=== PATIENT | male | born 1935 | race Caucasian/White ===

== ENCOUNTER 2016-11-27 13:34 | Emergency (ER) | payer MEDICARE, OTHER ==
[~2016-11-27 13:34] MED LIST: /WARF25TA OR; ACET65TA OR; BABY81CH OR; LISIPOW PO; SIMV5TAB2 OR; TRAM50TA2 OR
--- NOTE | 2016-11-27 15:14 | EDDOCDS ---
Nurse's Notes [facility] Name: Juan Collazo Age: 81 yrs Sex: Male : 1935 Arrival Date: 11/27/2016 Time: 13:34 Bed TR8 Private MD: Sharon Gonsalez N. Diagnosis: Rash and other nonspecific skin eruption-unspecified allergic reaction Presentation: 11/27 13:42 Presenting complaint: Patient states: Pt presents with c/o generalized rash on trunk x dls 2 days is improving today. Onset: The symptoms/episode began/occurred 2 day(s) ago. This patient has not experienced a previous allergic reaction. Anaphylaxis evaluation, the patient reports or I have noted the following symptoms which indicate a significant risk of anaphylaxis: no signs or symptoms of anaphylaxis were noted. Adult Sepsis Screening: The patient does not have new or worsening altered mentation. Patient's respiratory rate is less than 22. Systolic blood pressure is greater than 100. Patient has a qSOFA score of 0- Negative Sepsis Screen. Suicide/Homicide risk assessment- the patient denies having any suicidal and/or homicidal ideations and does not present with any other emotional, behavioral or mental health complaints. Status: Patient is not a client services director or dependent. Transition of care: patient was not received from another setting of care. 13:42 Acuity: VIRI Level 4 dls 13:42 Method Of Arrival: Walkin/Carried/Asstd dls Triage Assessment: 13:45 General: Appears in no apparent distress, well developed, well nourished, well groomed, dls Behavior is cooperative. Pain: Denies pain. Respiratory: No deficits noted. 15:13 Respiratory: Reports no respiratory complaints. ms18 Historical: - Allergies: no known allergies; - Home Meds: 1. aspirin 325 mg Oral tab 1 tab once daily 2. Fish Oil Oral 1 cap daily 3. lisinopril 5 mg Oral tab 0.5 tab every other day 4. metoprolol tartrate 25 mg Oral tab 0.5 tabs 2 times per day 5. simvastatin 5 mg Oral tab 1 tab nightly - PMHx: CAD; Hypercholesterolemia; Hypertension; Supraventricular Tachycardia; - PSHx: hip replacement right; - Social history: Smoking status: Patient/guardian denies using No barriers to communication noted, The patient speaks fluent [place] Islander. - Family history: Not pertinent. - : The pt / caregiver states he / she is not on anticoagulants. Home medication list is obtained from the patient. - Exposure Risk Screening:: None identified. Screenin:11 Screening information is obtained from the patient. Fall risk: No risks identified. ms18 Assistance ADL's: requires no assistance with activities of daily living. Abuse/DV Screen: The patient / caregiver reports he/she is: not in a situation that causes fear, pain or injury. Nutritional screening: No deficits noted. Advance Directives: There is no living will. home support is adequate. Assessment: 15:11 General: Appears in no apparent distress, comfortable, Behavior is appropriate for age, ms18 cooperative. Pain: Denies pain. Neurological: Level of Consciousness is awake, alert, obeys commands, Oriented to person, place, time. Respiratory: No deficits noted. Airway is patent Respiratory effort is even, unlabored, Respiratory pattern is regular, symmetrical. Respiratory: Breath sounds are clear bilaterally. Derm: Skin is pink, warm & dry. normal, Rash noted that is red, on back and chest. Vital Signs: 13:37 BP 122 / 65; Pulse 76; Resp 18 S; Temp 97.4(O); Pulse Ox 98% on R/A; Weight 72.57 kg gr2 (R); Height 5 ft. 8 in. (172.72 cm) (R); Pain 2/10; 15:11 BP 130 / 63; Pulse 78; Resp 18; Temp 98; Pulse Ox 98% ; Pain 0/10; ms18 13:37 Body Mass Index 24.33 (72.57 kg, 172.72 cm) gr2 Vitals: 13:37 Log In Time: November 27, 2016 at 13:37. gr2 ED Course: 13:35 Patient visited by Cary West. gr2 13:35 Sharon Gonsalez is Private Physician. gr2 13:35 Patient moved to Waiting gr2 13:39 Patient visited by Cary West. gr2 13:39 Patient moved to Pre RCE gr2 13:43 Triage Initiated dls 14:05 Patient moved to Triage 3 ms18 14:25 [facility] ar2 14:25 Amina Olivera MD is Attending Physician. ar2 14:25 Patient visited by Tacos Aggarwal PA-C. ar2 14:51 Gonsalez, Sharon is Referral Physician. ar2 15:08 [facility] Payment Agreement was scanned into [employer] and attached to record. gjb 15:11 Patient visited by Delfina Mckeon RN. ms18 15:11 Patient moved to TR8 ms18 15:11 The patient / caregiver is instructed regarding the plan of care and ED course. Patient ms18 has correct armband on for positive identification. Property :Personal belongings accompany Pt. 15:11 No IV's were initiated during this patient's visit. No procedures done that require ms18 assistance. Order Results: There are currently no results for this order. Outcome: 14:52 Discharge ordered by Provider. ar2 15:11 Discharge Assessment: Patient awake, alert and oriented x 3. No cognitive and/or ms18 functional deficits noted. Patient verbalized understanding of disposition instructions. patient administered narcotics - no. The following High Risk Discharge criteria are identified: None. Discharged to home ambulatory. Condition: good Condition: stable. Discharge instructions given to patient, Instructed on discharge instructions, follow up and referral plans. medication usage, Demonstrated understanding of instructions, medications, Pt was receptive of discharge instructions/ teaching. Prescriptions given X 1. No special radiology studies were completed. 15:13 Patient left the ED. ms18 Signatures: Mouna Morris RN RN dls Robertshaw, Aaron, PA-C PA-C ar2 Cary West gr2 Delfina Mckeon RN RN ms18 Clementine Doan [facility] MTDD
--- NOTE | 2016-11-27 15:14 | EDDOCDS ---
Physician Documentation [facility] Name: Juan Collazo Age: 81 yrs Sex: Male : 1935 Arrival Date: 11/27/2016 Time: 13:34 Bed TR8 Private MD: Sharon Gonsalez N. Disposition: 11/27/16 14:52 Discharged to Home/Self Care. Impression: Rash and other nonspecific skin eruption - unspecified allergic reaction. - Condition is Stable. - Discharge Instructions: Rash, Allergies, Izsm-aq-Hxli. - Prescriptions for Claritin 10 mg Oral Tablet - take 1 tablet by ORAL route once daily As needed; 30 tablet. - Medication Reconciliation, Local Pharmacy Hours form. - Follow up: Sharon Gonsalez; When: As needed; Reason: Recheck today's complaints. Follow up: Emergency Department; When: As needed; Reason: Trouble breathing, Worsening of conditions. - Problem is new. - Symptoms have improved. - Notes: may use over the counter benadryl cream or sticks for additional relief Historical: - Allergies: no known allergies; - Home Meds: 1. aspirin 325 mg Oral tab 1 tab once daily 2. Fish Oil Oral 1 cap daily 3. lisinopril 5 mg Oral tab 0.5 tab every other day 4. metoprolol tartrate 25 mg Oral tab 0.5 tabs 2 times per day 5. simvastatin 5 mg Oral tab 1 tab nightly - PMHx: CAD; Hypercholesterolemia; Hypertension; Supraventricular Tachycardia; - PSHx: hip replacement right; - Social history: Smoking status: Patient/guardian denies using No barriers to communication noted, The patient speaks fluent Mexican. - Family history: Not pertinent. - : The pt / caregiver states he / she is not on anticoagulants. Home medication list is obtained from the patient. - Exposure Risk Screening:: None identified. Vital Signs: 11/27 13:37 BP 122 / 65; Pulse 76; Resp 18 S; Temp 97.4(O); Pulse Ox 98% on R/A; Weight 72.57 kg / gr2 159.99 lbs (R); Height 5 ft. 8 in. (172.72 cm) (R); Pain 2/10; 15:11 BP 130 / 63; Pulse 78; Resp 18; Temp 98; Pulse Ox 98% ; Pain 0/10; ms18 13:37 Body Mass Index 24.33 (72.57 kg, 172.72 cm) gr2 MDM: 15:08 [facility] Payment Agreement was scanned into [employer] and attached to record. noam 15:08 Financial registration complete. noam Signatures: Mouna Morris RN RN dls Tacos Aggarwal PA-C PAGino ar2 Delfina Mckeon RN RN ms18 Clementine Doan The chart was reviewed and I authenticate all verbal orders and agree with the evaluation and treatment provided.Attachments: 15:08 [facility] Payment Agreement gjvamshi MTDD
--- NOTE | 2016-11-29 16:15 | EDDOCDS ---
Nurse's Notes [facility] Name: Juan Collazo Age: 81 yrs Sex: Male : 1935 Arrival Date: 11/27/2016 Time: 13:34 Bed TR8 Private MD: Sharon Gonsalez N. Diagnosis: Rash and other nonspecific skin eruption-unspecified allergic reaction Presentation: 11/27 13:42 Presenting complaint: Patient states: Pt presents with c/o generalized rash on trunk x dls 2 days is improving today. Onset: The symptoms/episode began/occurred 2 day(s) ago. This patient has not experienced a previous allergic reaction. Anaphylaxis evaluation, the patient reports or I have noted the following symptoms which indicate a significant risk of anaphylaxis: no signs or symptoms of anaphylaxis were noted. Adult Sepsis Screening: The patient does not have new or worsening altered mentation. Patient's respiratory rate is less than 22. Systolic blood pressure is greater than 100. Patient has a qSOFA score of 0- Negative Sepsis Screen. Suicide/Homicide risk assessment- the patient denies having any suicidal and/or homicidal ideations and does not present with any other emotional, behavioral or mental health complaints. 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 Transition of care: patient was not received from another setting of care. 13:42 Acuity: VIRI Level 4 dls 13:42 Method Of Arrival: Walkin/Carried/Asstd dls Triage Assessment: 13:45 General: Appears in no apparent distress, well developed, well nourished, well groomed, dls Behavior is cooperative. Pain: Denies pain. Respiratory: No deficits noted. 15:13 Respiratory: Reports no respiratory complaints. ms18 Historical: - Allergies: no known allergies; - Home Meds: 1. aspirin 325 mg Oral tab 1 tab once daily 2. Fish Oil Oral 1 cap daily 3. lisinopril 5 mg Oral tab 0.5 tab every other day 4. metoprolol tartrate 25 mg Oral tab 0.5 tabs 2 times per day 5. simvastatin 5 mg Oral tab 1 tab nightly - PMHx: CAD; Hypercholesterolemia; Hypertension; Supraventricular Tachycardia; - PSHx: hip replacement right; - Social history: Smoking status: Patient/guardian denies using No barriers to communication noted, The patient speaks fluent Algerian. - Family history: Not pertinent. - : The pt / caregiver states he / she is not on anticoagulants. Home medication list is obtained from the patient. - Exposure Risk Screening:: None identified. Screenin:11 Screening information is obtained from the patient. Fall risk: No risks identified. ms18 Assistance ADL's: requires no assistance with activities of daily living. Abuse/DV Screen: The patient / caregiver reports he/she is: not in a situation that causes fear, pain or injury. Nutritional screening: No deficits noted. Advance Directives: There is no living will. home support is adequate. Assessment: 15:11 General: Appears in no apparent distress, comfortable, Behavior is appropriate for age, ms18 cooperative. Pain: Denies pain. Neurological: Level of Consciousness is awake, alert, obeys commands, Oriented to person, place, time. Respiratory: No deficits noted. Airway is patent Respiratory effort is even, unlabored, Respiratory pattern is regular, symmetrical. Respiratory: Breath sounds are clear bilaterally. Derm: Skin is pink, warm & dry. normal, Rash noted that is red, on back and chest. Vital Signs: 13:37 BP 122 / 65; Pulse 76; Resp 18 S; Temp 97.4(O); Pulse Ox 98% on R/A; Weight 72.57 kg gr2 (R); Height 5 ft. 8 in. (172.72 cm) (R); Pain 2/10; 15:11 BP 130 / 63; Pulse 78; Resp 18; Temp 98; Pulse Ox 98% ; Pain 0/10; ms18 13:37 Body Mass Index 24.33 (72.57 kg, 172.72 cm) gr2 Vitals: 13:37 Log In Time: November 27, 2016 at 13:37. gr2 ED Course: 13:35 Patient visited by Cary West. gr2 13:35 Sharon Gonsalez is Private Physician. gr2 13:35 Patient moved to Waiting gr2 13:39 Patient visited by Cary West. gr2 13:39 Patient moved to Pre RCE gr2 13:43 Triage Initiated dls 14:05 Patient moved to Triage 3 ms18 14:25 [facility] ar2 14:25 Amina Olivera MD is Attending Physician. ar2 14:25 Patient visited by Tacos Aggarwal PA-C. ar2 14:51 Sunshine Sharon is Referral Physician. ar2 15:08 [facility] Payment Agreement was scanned into [employer] and attached to record. gjb 15:11 Patient visited by Delfina Mckeon RN. ms18 15:11 Patient moved to TR8 ms18 15:11 The patient / caregiver is instructed regarding the plan of care and ED course. Patient ms18 has correct armband on for positive identification. Property :Personal belongings accompany Pt. 15:11 No IV's were initiated during this patient's visit. No procedures done that require ms18 assistance. 11/28 06:12 T-Sheet-- Draft Copy was scanned into [employer] and attached to record. lja Order Results: There are currently no results for this order. Outcome: 11/27 14:52 Discharge ordered by Provider. ar2 15:11 Discharge Assessment: Patient awake, alert and oriented x 3. No cognitive and/or ms18 functional deficits noted. Patient verbalized understanding of disposition instructions. patient administered narcotics - no. The following High Risk Discharge criteria are identified: None. Discharged to home ambulatory. Condition: good Condition: stable. Discharge instructions given to patient, Instructed on discharge instructions, follow up and referral plans. medication usage, Demonstrated understanding of instructions, medications, Pt was receptive of discharge instructions/ teaching. Prescriptions given X 1. No special radiology studies were completed. 15:13 Patient left the ED. ms18 Signatures: Mouna Morris, RN RN dls Tacos Aggarwal PA-C PA-C ar2 Cary West gr2 Delfina Mckeon RN RN ms18 Are, Clementine Enriquez Chart Complete MTDD
--- NOTE | 2016-11-29 16:15 | EDDOCDS ---
Physician Documentation [facility] Name: Juan Collazo Age: 81 yrs Sex: Male : 1935 Arrival Date: 11/27/2016 Time: 13:34 Bed TR8 Private MD: Sharon Gonsalez N. Disposition: 11/27/16 14:52 Discharged to Home/Self Care. Impression: Rash and other nonspecific skin eruption - unspecified allergic reaction. - Condition is Stable. - Discharge Instructions: Rash, Allergies, [id number]-Kzoj. - Prescriptions for Claritin 10 mg Oral Tablet - take 1 tablet by ORAL route once daily As needed; 30 tablet. - Medication Reconciliation, Local Pharmacy Hours form. - Follow up: Sharon Gonsalez; When: As needed; Reason: Recheck today's complaints. Follow up: Emergency Department; When: As needed; Reason: Trouble breathing, Worsening of conditions. - Problem is new. - Symptoms have improved. - Notes: may use over the counter benadryl cream or sticks for additional relief Historical: - Allergies: no known allergies; - Home Meds: 1. aspirin 325 mg Oral tab 1 tab once daily 2. Fish Oil Oral 1 cap daily 3. lisinopril 5 mg Oral tab 0.5 tab every other day 4. metoprolol tartrate 25 mg Oral tab 0.5 tabs 2 times per day 5. simvastatin 5 mg Oral tab 1 tab nightly - PMHx: CAD; Hypercholesterolemia; Hypertension; Supraventricular Tachycardia; - PSHx: hip replacement right; - Social history: Smoking status: Patient/guardian denies using No barriers to communication noted, The patient speaks fluent [place] Islander. - Family history: Not pertinent. - : The pt / caregiver states he / she is not on anticoagulants. Home medication list is obtained from the patient. - Exposure Risk Screening:: None identified. Vital Signs: 11/27 13:37 BP 122 / 65; Pulse 76; Resp 18 S; Temp 97.4(O); Pulse Ox 98% on R/A; Weight 72.57 kg / gr2 159.99 lbs (R); Height 5 ft. 8 in. (172.72 cm) (R); Pain 2/10; 15:11 BP 130 / 63; Pulse 78; Resp 18; Temp 98; Pulse Ox 98% ; Pain 0/10; ms18 13:37 Body Mass Index 24.33 (72.57 kg, 172.72 cm) gr2 MDM: 15: [facility] Payment Agreement was scanned into [employer] and attached to record. gjb : Financial registration complete. gjb 11/28 06:12 T-Sheet-- Draft Copy was scanned into [employer] and attached to record. sury Signatures: Mouna Morris RN RN dls Tacso Aggarwal PA-C PAGino arDelfina Villarreal RN RN ms18 Arel, Clementine Enriquez The chart was reviewed and I authenticate all verbal orders and agree with the evaluation and treatment provided.Attachments: 11/27 15:08 [facility] Payment Agreement gjb 11/28 06:12 T-Sheet-- Draft Copy ljmontse Chart Complete MTDD
--- NOTE | 2016-11-29 16:15 | EDDOCDS ---
Physician Documentation [facility] Name: Juan Collazo Age: 81 yrs Sex: Male : 1935 Arrival Date: 11/27/2016 Time: 13:34 Bed TR8 Private MD: Sharon Gonsalez N. Disposition: 11/27/16 14:52 Discharged to Home/Self Care. Impression: Rash and other nonspecific skin eruption - unspecified allergic reaction. - Condition is Stable. - Discharge Instructions: Rash, Allergies, Ijjv-ye-Irbr. - Prescriptions for Claritin 10 mg Oral Tablet - take 1 tablet by ORAL route once daily As needed; 30 tablet. - Medication Reconciliation, Local Pharmacy Hours form. - Follow up: Sharon Gonsalez; When: As needed; Reason: Recheck today's complaints. Follow up: Emergency Department; When: As needed; Reason: Trouble breathing, Worsening of conditions. - Problem is new. - Symptoms have improved. - Notes: may use over the counter benadryl cream or sticks for additional relief Historical: - Allergies: no known allergies; - Home Meds: 1. aspirin 325 mg Oral tab 1 tab once daily 2. Fish Oil Oral 1 cap daily 3. lisinopril 5 mg Oral tab 0.5 tab every other day 4. metoprolol tartrate 25 mg Oral tab 0.5 tabs 2 times per day 5. simvastatin 5 mg Oral tab 1 tab nightly - PMHx: CAD; Hypercholesterolemia; Hypertension; Supraventricular Tachycardia; - PSHx: hip replacement right; - Social history: Smoking status: Patient/guardian denies using No barriers to communication noted, The patient speaks fluent Puerto Rican. - Family history: Not pertinent. - : The pt / caregiver states he / she is not on anticoagulants. Home medication list is obtained from the patient. - Exposure Risk Screening:: None identified. Vital Signs: 11/27 13:37 BP 122 / 65; Pulse 76; Resp 18 S; Temp 97.4(O); Pulse Ox 98% on R/A; Weight 72.57 kg / gr2 159.99 lbs (R); Height 5 ft. 8 in. (172.72 cm) (R); Pain 2/10; 15:11 BP 130 / 63; Pulse 78; Resp 18; Temp 98; Pulse Ox 98% ; Pain 0/10; ms18 13:37 Body Mass Index 24.33 (72.57 kg, 172.72 cm) gr2 MDM: 15: [facility] Payment Agreement was scanned into [employer] and attached to record. gjb : Financial registration complete. gjb 11/28 06:12 T-Sheet-- Draft Copy was scanned into [employer] and attached to record. sury Signatures: Mouna Morris RN RN dls Tacos Aggarwal PA-C PAGino arDelfina Villarreal RN RN ms18 Arel, Clementine Enriquez The chart was reviewed and I authenticate all verbal orders and agree with the evaluation and treatment provided.Attachments: 11/27 15:08 [facility] Payment Agreement gjb 11/28 06:12 T-Sheet-- Draft Copy ljmontse Chart Complete MTDD
== END 2016-11-27 15:13 | disposition home or self-care (01) ==
LOC: M ED 13:34
DX: T78.40XA Allergy, unspecified, initial encounter (principal); X58.XXXA Exposure to other specified factors, initial encounter; Y92.89 Other specified places as the place of occurrence of the external cause; Y93.89 Activity, other specified; Y99.8 Other external cause status; L29.9 Pruritus, unspecified; R21 Rash and other nonspecific skin eruption; I25.10 Atherosclerotic heart disease of native coronary artery without angina pectoris; I10 Essential (primary) hypertension; I47.1 Supraventricular tachycardia; E78.00 Pure hypercholesterolemia, unspecified; Z96.641 Presence of right artificial hip joint; Z79.82 Long term (current) use of aspirin; Z79.899 Other long term (current) drug therapy

== ENCOUNTER → 2016-12-18 | Outpatient (REF) | payer MEDICARE, OTHER ==
[2016-12-18 13:58] LABS: BASO % 0.3 % (0.0-1.0); EOS # 0.2 K/mm3 (0.0-0.50); EOS % 4.6 % (0.0-3.0); LARGE UNSTAINED CELL # 0.1 K/mm3 (0.0-0.4); LARGE UNSTAINED CELL % 2.8 % (0.0-4.0); LYMPH # 2.4 K/mm3 (1.5-4.5); LYMPH % 46.5 % (24.0-44.0); MEAN CORPUSCULAR HEMOGLOBIN 30.4 pg (27.0-33.0); MEAN CORPUSCULAR HGB CONC 33.9 g/dl (32.0-36.5); MEAN CORPUSCULAR VOLUME 89.8 fl (80.0-96.0); MONO # 0.3 K/mm3 (0.0-0.8); MONO % 5.4 % (0.0-5.0); NEUTROPHILS # 2.1 K/mm3 (1.8-7.7); NEUTROPHILS % 40.4 % (36.0-66.0); PLATELET COUNT, AUTOMATED 178 k/mm3 (150-450); RED CELL DISTRIBUTION WIDTH 12.1 % (11.5-14.5); WHITE BLOOD COUNT 5.2 K/mm3 (4.0-10.0)
[2016-12-18 14:44] LABS: ALBUMIN 3.8 GM/DL (3.2-5.2); ALBUMIN/GLOBULIN RATIO 1.12 (1.00-1.93); BILIRUBIN,TOTAL 0.5 MG/DL (0.2-1.0); CALCIUM LEVEL 8.7 MG/DL (8.8-10.2); CREATININE FOR GFR 1.43 MG/DL (0.70-1.30); GLOMERULAR FILTRATION RATE 50.5 (>35); POTASSIUM SERUM 4.5 MEQ/L (3.5-5.1); TOTAL PROTEIN 7.2 GM/DL (6.4-8.2)
== END ==
LOC: M LABDRAW1 12:59
PROVIDERS: ATTEND Physician Assistant Medical
DX: N18.3 Chronic kidney disease, stage 3 (moderate) (principal); D63.8 Anemia in other chronic diseases classified elsewhere; R73.01 Impaired fasting glucose; E78.4 Other hyperlipidemia

== ENCOUNTER 2017-06-07 18:56 | Emergency (ER) | payer MEDICARE, OTHER ==
[~2017-06-07] VITALS: Ht 172.7 cm; Wt 72.8 kg
[2017-06-07] MEDS ORDERED: METO1TAB87 PO (19:11)
[2017-06-07] MEDS ORDERED: ASPI325T PO (19:11)
[2017-06-07] MEDS ORDERED: FISH1000 PO (19:11)
--- NOTE | 2017-06-07 19:45 | ECGEPIP ---
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
--- NOTE | 2017-06-07 20:40 | REPUSA ---
Clinical history: Cough. Comparison: None. Findings: Frontal and lateral views of the chest were obtained. The mediastinum and cardiac silhouett e are within normal limits. The lungs are clear. No pleural effusion or pneumothorax is seen. The oss eous structures and soft tissues are unremarkable. Impression: No acute disease.
[2017-06-07 20:46] LABS: BASO % 0.4 % (0.0-1.0); EOS # 0.2 K/mm3 (0.0-0.50); EOS % 2.6 % (0.0-3.0); LARGE UNSTAINED CELL # 0.1 K/mm3 (0.0-0.4); LARGE UNSTAINED CELL % 2.2 % (0.0-4.0); LYMPH # 2.8 K/mm3 (1.5-4.5); LYMPH % 43.5 % (24.0-44.0); MEAN CORPUSCULAR HEMOGLOBIN 32.8 pg (27.0-33.0); MEAN CORPUSCULAR HGB CONC 35.9 g/dl (32.0-36.5); MEAN CORPUSCULAR VOLUME 91.3 fl (80.0-96.0); MONO # 0.3 K/mm3 (0.0-0.8); MONO % 4.7 % (0.0-5.0); NEUTROPHILS # 2.9 K/mm3 (1.8-7.7); NEUTROPHILS % 46.7 % (36.0-66.0); PLATELET COUNT, AUTOMATED 153 k/mm3 (150-450); RED CELL DISTRIBUTION WIDTH 12.1 % (11.5-14.5); WHITE BLOOD COUNT 6.2 K/mm3 (4.0-10.0)
[2017-06-07 21:03] LABS: MAGNESIUM LEVEL 2.1 MG/DL (1.8-2.4); PHOSPHORUS LEVEL 3.6 MG/DL (2.5-4.9)
[2017-06-07 21:07] LABS: ANION GAP 5 MEQ/L (8-16); BLOOD UREA NITROGEN 27 MG/DL (7-18); CARBON DIOXIDE LEVEL 27 MEQ/L (21-32); CHLORIDE LEVEL 105 MEQ/L (98-107); CREATININE FOR GFR 1.41 MG/DL (0.70-1.30); FREE T4 0.98 NG/DL (0.76-1.46); GLOMERULAR FILTRATION RATE 51.2 (>35); GLUCOSE, FASTING 100 MG/DL (83-110); POTASSIUM SERUM 4.7 MEQ/L (3.5-5.1); SODIUM LEVEL 137 MEQ/L (136-145)
[2017-06-07 22:16] VITALS: BP 119/67
== END 2017-06-07 22:29 | disposition home or self-care (01) ==
LOC: M ED 18:56
DX: R00.2 Palpitations (principal); I12.9 Hypertensive chronic kidney disease with stage 1 through stage 4 chronic kidney disease, or unspecified chronic kidney disease; D64.9 Anemia, unspecified; N18.9 Chronic kidney disease, unspecified; E78.4 Other hyperlipidemia

== ENCOUNTER → 2017-08-28 | Outpatient (REF) | payer MEDICARE, OTHER ==
[~2017-08-28] MED LIST changes: +ASPI325T PO; +FISH1000 PO; +METO1TAB87 PO
[2017-08-28 11:34] LABS: BASO % 0.5 % (0.0-1.0); EOS # 0.2 10^3/uL (0.0-0.50); EOS % 3.6 % (0.0-3.0); IMMATURE GRANULOCYTE % 0.3 % (0-0); LYMPH # 2.9 10^3/uL (1.5-4.5); MEAN CORPUSCULAR HEMOGLOBIN 31.8 pg (27.0-33.0); MEAN CORPUSCULAR HGB CONC 34.2 g/dl (32.0-36.5); MEAN CORPUSCULAR VOLUME 93.2 fl (80.0-96.0); MONO # 0.4 10^3/uL (0.0-0.8); MONO % 6.9 % (0.0-5.0); NEUTROPHILS # 2.7 10^3/uL (1.8-7.7); NEUTROPHILS % 42.7 % (36.0-66.0); PLATELET COUNT, AUTOMATED 179 10^3/uL (150-450); RED CELL DISTRIBUTION WIDTH 12.3 % (11.5-14.5); WHITE BLOOD COUNT 6.4 10^3/uL (4.0-10.0)
[2017-08-28 11:36] LABS: ADD MANUAL DIFFER NO; DIFF SLIDE NUMBER 177
[2017-08-28 12:22] LABS: ALBUMIN 3.7 GM/DL (3.2-5.2); ALBUMIN/GLOBULIN RATIO 1.03 (1.00-1.93); BILIRUBIN,TOTAL 0.8 MG/DL (0.2-1.0); CALCIUM LEVEL 9.1 MG/DL (8.8-10.2); CREATININE FOR GFR 1.37 MG/DL (0.70-1.30); POTASSIUM SERUM 4.3 MEQ/L (3.5-5.1); TOTAL PROTEIN 7.3 GM/DL (6.4-8.2)
== END ==
LOC: M LABDRAW1 10:06
PROVIDERS: ATTEND Physician Assistant Medical
DX: E78.4 Other hyperlipidemia (principal); R73.01 Impaired fasting glucose; D63.8 Anemia in other chronic diseases classified elsewhere

== ENCOUNTER → 2018-08-27 | Outpatient (REF) | payer MEDICARE, OTHER ==
[2018-08-27 12:48] LABS: BASO % 0.5 % (0.0-1.0); EOS # 0.3 10^3/uL (0.0-0.50); EOS % 5.5 % (0.0-3.0); HEMATOCRIT 36.1 % (42.0-52.0); HEMOGLOBIN 12.2 g/dl (13.5-17.5); IMMATURE GRANULOCYTE % 0.3 % (0-3.0); LYMPH # 2.1 10^3/uL (1.5-4.5); LYMPH % 35.1 % (24.0-44.0); MEAN CORPUSCULAR HEMOGLOBIN 31.3 pg (27.0-33.0); MEAN CORPUSCULAR HGB CONC 33.8 g/dl (32.0-36.5); MEAN CORPUSCULAR VOLUME 92.6 fl (80.0-96.0); MONO # 0.5 10^3/uL (0.0-0.8); MONO % 7.8 % (0.0-5.0); NEUTROPHILS % 50.8 % (36.0-66.0); PLATELET COUNT, AUTOMATED 154 10^3/uL (150-450)
[2018-08-27 13:44] LABS: ESTIMATED AVERAGE GLUCOSE 123 MG/DL (60-110); HEMOGLOBIN A1c 5.9 %
[2018-08-27 13:45] LABS: ALBUMIN 3.8 GM/DL (3.2-5.2); ALBUMIN/GLOBULIN RATIO 1.06 (1.00-1.93); ALKALINE PHOSPHATASE 72 U/L (45-117); ALT/SGPT 27 U/L (12-78); ANION GAP 9 MEQ/L (8-16); AST/SGOT 24 U/L (7-37); BILIRUBIN,TOTAL 0.8 MG/DL (0.2-1.0); BLOOD UREA NITROGEN 17 MG/DL (7-18); CALCIUM LEVEL 8.8 MG/DL (8.8-10.2); CARBON DIOXIDE LEVEL 25 MEQ/L (21-32); CHLORIDE LEVEL 105 MEQ/L (98-107); CHOLESTEROL LEVEL 176 MG/DL (<200); CHOLESTEROL RISK RATIO 4.631 (<5); FERRITIN 87 NG/ML (26-388); FOLATE > 24.0 NG/ML; GLOMERULAR FILTRATION RATE 51.5 (>35); GLUCOSE, FASTING 93 MG/DL (70-100); HDL CHOLESTEROL 38 MG/DL (>40); IRON (FE) 79 UG/DL (65-175); LDL CHOLESTEROL 109 MG/DL (<100); NON-HDL-C 138 MG/DL; PERCENT SATURATION 27.4 % (19.7-50.0); POTASSIUM SERUM 4.7 MEQ/L (3.5-5.1); SODIUM LEVEL 139 MEQ/L (136-145); TOTAL IRON BINDING CAPACITY 288 UG/DL (250-450); TOTAL PROTEIN 7.4 GM/DL (6.4-8.2); TRIGLYCERIDES LEVEL 147 MG/DL (<150)
[2018-08-27 13:58] LABS: MALB URINE SIEMENS 8.1 MG/L
[2018-08-27 14:01] LABS: MAU/CREAT RATIO 7.4 MCG/MG (0.0-30.0)
== END ==
LOC: M LABDRAW1 11:42
DX: N18.3 Chronic kidney disease, stage 3 (moderate) (principal); R73.01 Impaired fasting glucose; D63.8 Anemia in other chronic diseases classified elsewhere; E78.00 Pure hypercholesterolemia, unspecified
CPT/HCPCS: 82746

== ENCOUNTER → 2019-03-04 | Outpatient (REF) | payer MEDICARE, OTHER ==
[~2019-03-04] MED LIST changes: -/WARF25TA OR; +ASPI-1 PO; -ASPI325T PO; +COUM1TAB18 OR
[2019-03-04 19:48] LABS: HEMOGLOBIN 12.7 g/dl (13.5-17.5); MEAN CORPUSCULAR HEMOGLOBIN 30.7 pg (27.0-33.0); MEAN CORPUSCULAR HGB CONC 32.6 g/dl (32.0-36.5); MEAN CORPUSCULAR VOLUME 94.2 fl (80.0-96.0); PLATELET COUNT, AUTOMATED 164 10^3/uL (150-450); RED BLOOD COUNT 4.14 10^6/uL (4.30-6.10); WHITE BLOOD COUNT 9.2 10^3/uL (4.0-10.0)
[2019-03-04 19:55] LABS: ALBUMIN 4.1 GM/DL (3.2-5.2); BILIRUBIN,TOTAL 0.5 MG/DL (0.2-1.0); CALCIUM LEVEL 9.4 MG/DL (8.8-10.2); CREATININE FOR GFR 1.41 MG/DL (0.70-1.30); GLOMERULAR FILTRATION RATE 51.1 (>35); POTASSIUM SERUM 4.9 MEQ/L (3.5-5.1); TOTAL PROTEIN 7.4 GM/DL (6.4-8.2)
[2019-03-04 20:38] LABS: BASOPHILS 1 % (0-4); EOSINOPHILS 3 % (0-5); LYMPHOCYTES 55 % (16-52); MONOCYTES 5 % (0-8); NEUTROPHILS 36 % (35-75); PLATELET ESTIMATE NORMAL (NORMAL)
== END ==
LOC: M SFHCADAM 15:46
PROVIDERS: ATTEND Physician Assistant Medical
DX: R73.01 Impaired fasting glucose (principal); I12.9 Hypertensive chronic kidney disease with stage 1 through stage 4 chronic kidney disease, or unspecified chronic kidney disease; N18.3 Chronic kidney disease, stage 3 (moderate)
CPT/HCPCS: 80053; 85025; G0463

== ENCOUNTER → 2019-08-19 | Outpatient (REF) | payer MEDICARE, OTHER ==
[2019-08-19 19:19] LABS: HEMOGLOBIN A1c 5.6 %
[2019-08-19 19:27] LABS: BILIRUBIN,TOTAL 0.7 MG/DL (0.2-1.0); CALCIUM LEVEL 9.2 MG/DL (8.8-10.2); CREATININE FOR GFR 1.44 MG/DL (0.70-1.30); GLOMERULAR FILTRATION RATE 49.8 (>35); PERCENT SATURATION 40.9 % (19.7-50.0); POTASSIUM SERUM 4.5 MEQ/L (3.5-5.1); THYROID STIMULATING HORMONE 6.18 uIU/ML (0.358-3.740)
[2019-08-19 19:29] LABS: BASO % 0.5 % (0.0-1.0); EOS # 0.2 10^3/uL (0.0-0.5); EOS % 2.8 % (0.0-3.0); HEMATOCRIT 37.1 % (42.0-52.0); HEMOGLOBIN 12.2 g/dl (13.5-17.5); LYMPH # 2.7 10^3/uL (1.5-5.0); LYMPH % 44.3 % (24.0-44.0); MEAN CORPUSCULAR HEMOGLOBIN 30.9 pg (27.0-33.0); MEAN CORPUSCULAR HGB CONC 32.9 g/dl (32.0-36.5); MEAN CORPUSCULAR VOLUME 93.9 fl (80.0-96.0); MONO # 0.4 10^3/uL (0.0-0.8); MONO % 6.2 % (0.0-5.0); NEUTROPHILS # 2.8 10^3/uL (1.5-8.5); NEUTROPHILS % 45.9 % (36.0-66.0); PLATELET COUNT, AUTOMATED 177 10^3/uL (150-450); RED BLOOD COUNT 3.95 10^6/uL (4.30-6.10); TOTAL 25(OH) VITAMIN D 53.4 NG/ML (30.0-100.0); WHITE BLOOD COUNT 6.1 10^3/uL (4.0-10.0)
[2019-08-19 19:35] LABS: MALB URINE SIEMENS 19.7 MG/L; MAU/CREAT RATIO 11.3 MCG/MG (0.0-30.0)
== END ==
LOC: M LABDRAW1 18:38
PROVIDERS: ATTEND Physician Assistant Medical
DX: E78.49 Other hyperlipidemia (principal); I10 Essential (primary) hypertension; N18.3 Chronic kidney disease, stage 3 (moderate); R73.01 Impaired fasting glucose; Z79.899 Other long term (current) drug therapy; Z79.82 Long term (current) use of aspirin

== ENCOUNTER 2019-09-17 17:06 | Emergency (ER) | payer MEDICARE, OTHER ==
[~2019-09-17] VITALS: Ht 172.7 cm; Wt 72.6 kg
--- NOTE | 2019-09-17 17:32 | ECGEPIP ---
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
[2019-09-17 17:57] LABS: BASO % 0.5 % (0.0-1.0); EOS # 0.1 10^3/uL (0.0-0.5); EOS % 1.4 % (0.0-3.0); HEMATOCRIT 37.4 % (42.0-52.0); LYMPH # 3.2 10^3/uL (1.5-5.0); MEAN CORPUSCULAR HEMOGLOBIN 32.3 pg (27.0-33.0); MEAN CORPUSCULAR HGB CONC 34.8 g/dl (32.0-36.5); MEAN CORPUSCULAR VOLUME 92.8 fl (80.0-96.0); MONO # 0.5 10^3/uL (0.0-0.8); MONO % 6.1 % (0.0-5.0); NEUTROPHILS # 4.1 10^3/uL (1.5-8.5); NEUTROPHILS % 51.7 % (36.0-66.0); PLATELET COUNT, AUTOMATED 173 10^3/uL (150-450); RED BLOOD COUNT 4.03 10^6/uL (4.30-6.10)
[2019-09-17 18:25] LABS: BLOOD UREA NITROGEN 30 MG/DL (7-18); CALCIUM LEVEL 9.1 MG/DL (8.8-10.2); CARBON DIOXIDE LEVEL 26 MEQ/L (21-32); CHLORIDE LEVEL 108 MEQ/L (98-107); CK-MB VALUE MASS 10.1 NG/ML (<3.6); CPK CREATINE PHOSPHOKINASE 274 U/L (39-308); CREATININE FOR GFR 1.62 MG/DL (0.70-1.30); GLOMERULAR FILTRATION RATE 43.4 (>35); GLUCOSE, FASTING 118 MG/DL (70-100); MB/CK RELATIVE INDEX 3.69 (< OR =4); POTASSIUM SERUM 4.6 MEQ/L (3.5-5.1); SODIUM LEVEL 140 MEQ/L (136-145); TROPONIN I < 0.02 NG/ML (< 0.10)
--- NOTE | 2019-09-17 18:33 | REP ---
Two-view chest: 09/17/2019. Indication: Tachycardia. Comparison: 06/07/2017. Findings: The lungs are clear. There is no pleural effusion or pneumothorax. Cardiomediastinal silhouette is unremarkable. Impression: Clear lungs. Electronically Signed by Peng Sevilla DO 09/17/2019 06:25 P
[2019-09-17] MEDS ORDERED: METOPROLOL 5 MG/5 ML VIAL IV SCH (19:00)
[2019-09-17] MEDS ORDERED: NS 1,000 ML IV ONE (19:00)
[2019-09-17 21:55] VITALS: BP 152/70
== END 2019-09-17 22:00 | disposition home or self-care (01) ==
LOC: M ED 17:06
DX: R00.0 Tachycardia, unspecified (principal); E86.0 Dehydration; I10 Essential (primary) hypertension; E78.5 Hyperlipidemia, unspecified; Z79.82 Long term (current) use of aspirin; Z79.899 Other long term (current) drug therapy; Z87.891 Personal history of nicotine dependence

== ENCOUNTER → 2019-09-24 | Outpatient (CLI) | payer MEDICARE, OTHER ==
--- NOTE | 2019-09-24 16:53 | REP ---
THYROID ULTRASOUND: Real-time sonographic evaluation of the thyroid is performed. There are no comparison studies. Both lobes are normal in size, right lobe measuring 4.2 x 1.5 x 1.7 cm and left lobe 4.1 x 2.0 x 1.6 cm. A cyst in the right upper pole measures 5 mm in diameter, another in the mid aspect measures 5 mm and there is an adjacent 3 mm cyst in the lower pole. There is a cystic nodule posteriorly and inferiorly in the right lobe 10 x 6 x 10 mm containing low level echoes. In the left upper pole there is a 3 mm cyst. There is a complex nodule in the mid aspect of the left lobe which represents either complex cyst or solid nodule 7 x 4 x 6 mm. Smaller complex nodule in the left lower pole measures 5 x 2 x 3 mm. IMPRESSION: Subcentimeter cysts and nodules as discussed in detail above. Recommend a followup ultrasound in 6 months. Electronically Signed by Davey Escobar MD 09/25/2019 02:37 P
== END ==
LOC: M RAD 13:43
PROVIDERS: ATTEND Physician Assistant Medical
DX: E04.1 Nontoxic single thyroid nodule (principal)

== ENCOUNTER → 2020-04-02 | Outpatient (CLI) | payer MEDICARE, OTHER ==
--- NOTE | 2020-04-03 08:21 | REP ---
THYROID ULTRASOUND: Real-time sonographic evaluation of thyroid performed and compared to prior study of 09/24/2019. Right lobe measures 4.5 x 1.7 x 1.6 cm and left lobe 3.4 x 1.3 x 1.8 cm. Multiple subcentimeter cysts are scattered throughout the right lobe. Approximately five are seen and the largest is in the lower pole with a maximum diameter of 1 cm. There are two subcentimeter cysts in the left upper pole, maximum diameter is 6 mm. In the mid aspect, a slightly hypoechoic nodule measures 7 mm, unchanged. In the lower pole, there is a nodule measuring 7 x 8 x 6 mm. IMPRESSION: Multiple bilateral cysts. Two solid nodules in the left lobe mid aspect and lower aspect. The larger has a maximum diameter of 8 mm. According to TI-RADS criteria, these are category 2 benign and no followup is needed. Electronically Signed by Davey Escobar MD 04/05/2020 12:08 P
== END ==
LOC: M LRY 13:27
PROVIDERS: ATTEND Physician Assistant Medical
DX: E04.1 Nontoxic single thyroid nodule (principal)

== ENCOUNTER → 2020-04-05 | Outpatient (CLI) | payer MEDICARE, OTHER ==
[2020-04-05 12:26] LABS: BASO % 0.5 % (0.0-1.0); EOS # 0.2 10^3/uL (0.0-0.5); EOS % 3.1 % (0.0-3.0); HEMOGLOBIN 12.5 g/dl (13.5-17.5); LYMPH # 3.2 10^3/uL (1.5-5.0); LYMPH % 49.7 % (24.0-44.0); MEAN CORPUSCULAR HEMOGLOBIN 31.6 pg (27.0-33.0); MEAN CORPUSCULAR HGB CONC 33.8 g/dl (32.0-36.5); MEAN CORPUSCULAR VOLUME 93.7 fl (80.0-96.0); MONO # 0.5 10^3/uL (0.0-0.8); MONO % 7.2 % (0.0-5.0); NEUTROPHILS # 2.6 10^3/uL (1.5-8.5); NEUTROPHILS % 39.3 % (36.0-66.0); PLATELET COUNT, AUTOMATED 160 10^3/uL (150-450); RED BLOOD COUNT 3.95 10^6/uL (4.30-6.10); WHITE BLOOD COUNT 6.5 10^3/uL (4.0-10.0)
[2020-04-05 13:08] LABS: ALBUMIN 3.9 GM/DL (3.2-5.2); BILIRUBIN,TOTAL 0.5 MG/DL (0.2-1.0); CALCIUM LEVEL 9.4 MG/DL (8.8-10.2); CREATININE FOR GFR 1.44 MG/DL (0.70-1.30); FREE T4 0.92 NG/DL (0.76-1.46); GLOMERULAR FILTRATION RATE 49.6 (>35); MALB URINE SIEMENS 26.9 MG/L; MAU/CREAT RATIO 16.9 MCG/MG (0.0-30.0); POTASSIUM SERUM 4.8 MEQ/L (3.5-5.1); THYROID STIMULATING HORMONE 5.82 uIU/ML (0.358-3.740); TOTAL PROTEIN 7.3 GM/DL (6.4-8.2)
[2020-04-05 13:09] LABS: TOTAL 25(OH) VITAMIN D 52.9 NG/ML (30.0-100.0)
[2020-04-05 14:07] LABS: HEMOGLOBIN A1c 5.9 %
== END ==
LOC: M LAB 11:34
PROVIDERS: ATTEND Physician Assistant Medical
DX: E04.1 Nontoxic single thyroid nodule (principal); N18.3 Chronic kidney disease, stage 3 (moderate); R73.01 Impaired fasting glucose; E78.2 Mixed hyperlipidemia

== ENCOUNTER → 2020-09-23 | Outpatient (REF) | payer MEDICARE, OTHER ==
[2020-09-23 16:54] LABS: BASO # 0.1 10^3/uL (0.0-0.2); BASO % 0.6 % (0.0-1.0); EOS # 0.2 10^3/uL (0.0-0.5); EOS % 2.7 % (0.0-3.0); HEMATOCRIT 37.9 % (42.0-52.0); HEMOGLOBIN 12.3 g/dl (13.5-17.5); LYMPH # 3.3 10^3/uL (1.5-5.0); LYMPH % 42.2 % (24.0-44.0); MEAN CORPUSCULAR HGB CONC 32.5 g/dl (32.0-36.5); MEAN CORPUSCULAR VOLUME 95.5 fl (80.0-96.0); MONO # 0.5 10^3/uL (0.0-0.8); MONO % 6.5 % (0.0-5.0); NEUTROPHILS # 3.7 10^3/uL (1.5-8.5); NEUTROPHILS % 47.9 % (36.0-66.0); PLATELET COUNT, AUTOMATED 161 10^3/uL (150-450); RED BLOOD COUNT 3.97 10^6/uL (4.30-6.10); WHITE BLOOD COUNT 7.8 10^3/uL (4.0-10.0)
[2020-09-23 17:09] LABS: BILIRUBIN,TOTAL 0.5 MG/DL (0.2-1.0); CALCIUM LEVEL 9.1 MG/DL (8.8-10.2); CREATININE FOR GFR 1.51 MG/DL (0.70-1.30); POTASSIUM SERUM 4.9 MEQ/L (3.5-5.1); THYROID STIMULATING HORMONE 6.98 uIU/ML (0.358-3.740); TOTAL PROTEIN 7.3 GM/DL (6.4-8.2)
[2020-09-23 17:24] LABS: HEMOGLOBIN A1c 5.6 %
== END ==
LOC: M SFHCADAM 13:47
PROVIDERS: ATTEND Physician Assistant Medical
DX: E03.9 Hypothyroidism, unspecified (principal); N18.30 Chronic kidney disease, stage 3 unspecified; R73.01 Impaired fasting glucose; D63.8 Anemia in other chronic diseases classified elsewhere
CPT/HCPCS: 80053; 83036; 84443; 85025; G0463

== ENCOUNTER → 2021-03-14 | Outpatient (CLI) | payer MEDICARE, OTHER ==
[2021-03-14 13:01] LABS: BASO % 0.4 % (0.0-1.0); EOS # 0.2 10^3/uL (0.0-0.5); EOS % 2.4 % (0.0-3.0); HEMATOCRIT 37.6 % (42.0-52.0); HEMOGLOBIN 12.5 g/dl (13.5-17.5); LYMPH # 2.8 10^3/uL (1.5-5.0); LYMPH % 41.2 % (24.0-44.0); MEAN CORPUSCULAR HEMOGLOBIN 31.4 pg (27.0-33.0); MEAN CORPUSCULAR HGB CONC 33.2 g/dl (32.0-36.5); MEAN CORPUSCULAR VOLUME 94.5 fl (80.0-96.0); MONO # 0.5 10^3/uL (0.0-0.8); NEUTROPHILS # 3.2 10^3/uL (1.5-8.5); NEUTROPHILS % 47.7 % (36.0-66.0); PLATELET COUNT, AUTOMATED 151 10^3/uL (150-450); RED BLOOD COUNT 3.98 10^6/uL (4.30-6.10); WHITE BLOOD COUNT 6.8 10^3/uL (4.0-10.0)
[2021-03-14 13:54] LABS: ALBUMIN 3.9 GM/DL (3.2-5.2); BILIRUBIN,TOTAL 0.6 MG/DL (0.2-1.0); CALCIUM LEVEL 9.6 MG/DL (8.8-10.2); CHOLESTEROL RISK RATIO 4.512 (<5); CREATININE FOR GFR 1.5 MG/DL (0.70-1.30); GLOMERULAR FILTRATION RATE 47.2 (>35); THYROID STIMULATING HORMONE 7.2 uIU/ML (0.358-3.740); TOTAL PROTEIN 7.1 GM/DL (6.4-8.2)
[2021-03-14 15:27] LABS: TOTAL 25(OH) VITAMIN D 63.5 NG/ML (30.0-100.0)
[2021-03-14 16:18] LABS: HEMOGLOBIN A1c 5.7 %
== END ==
LOC: M LAB 11:57
PROVIDERS: ATTEND Physician Assistant Medical
DX: I12.9 Hypertensive chronic kidney disease with stage 1 through stage 4 chronic kidney disease, or unspecified chronic kidney disease (principal); R73.01 Impaired fasting glucose; D63.8 Anemia in other chronic diseases classified elsewhere; E78.2 Mixed hyperlipidemia; N18.31 Chronic kidney disease, stage 3a

== ENCOUNTER → 2021-09-12 | Outpatient (CLI) | payer MEDICARE, OTHER ==
[2021-09-12 12:08] LABS: BASO % 0.6 % (0.0-1.0); EOS # 0.2 10^3/uL (0.0-0.5); EOS % 2.4 % (0.0-3.0); HEMATOCRIT 37.8 % (42.0-52.0); HEMOGLOBIN 12.6 g/dl (13.5-17.5); LYMPH # 2.5 10^3/uL (1.5-5.0); LYMPH % 39.3 % (24.0-44.0); MEAN CORPUSCULAR HGB CONC 33.3 g/dl (32.0-36.5); MEAN CORPUSCULAR VOLUME 92.9 fl (80.0-96.0); MONO # 0.5 10^3/uL (0.0-0.8); MONO % 7.4 % (2.0-8.0); NEUTROPHILS # 3.2 10^3/uL (1.5-8.5); PLATELET COUNT, AUTOMATED 151 10^3/uL (150-450); RED BLOOD COUNT 4.07 10^6/uL (4.30-6.10); WHITE BLOOD COUNT 6.4 10^3/uL (4.0-10.0)
[2021-09-12 13:24] LABS: ALBUMIN 3.8 GM/DL (3.2-5.2); BILIRUBIN,TOTAL 0.5 MG/DL (0.2-1.0); CALCIUM LEVEL 9.4 MG/DL (8.8-10.2); CREATININE FOR GFR 1.5 MG/DL (0.70-1.30); GLOMERULAR FILTRATION RATE 47.2 (>35); POTASSIUM SERUM 4.7 MEQ/L (3.5-5.1); THYROID STIMULATING HORMONE 5.79 uIU/ML (0.358-3.740); TOTAL PROTEIN 7.3 GM/DL (6.4-8.2)
== END ==
LOC: M LAB 11:36
PROVIDERS: ATTEND Physician Assistant Medical
DX: R73.01 Impaired fasting glucose (principal); I11.0 Hypertensive heart disease with heart failure; D63.8 Anemia in other chronic diseases classified elsewhere; E78.2 Mixed hyperlipidemia

== ENCOUNTER → 2022-03-13 | Outpatient (CLI) | payer MEDICARE, OTHER ==
[2022-03-13 12:58] LABS: BASO % 0.5 % (0.0-1.0); EOS # 0.2 10^3/uL (0.0-0.5); EOS % 3.4 % (0.0-3.0); HEMATOCRIT 39.1 % (42.0-52.0); HEMOGLOBIN 13.1 g/dl (13.5-17.5); LYMPH # 3.1 10^3/uL (1.5-5.0); LYMPH % 47.5 % (24.0-44.0); MEAN CORPUSCULAR HEMOGLOBIN 31.6 pg (27.0-33.0); MEAN CORPUSCULAR HGB CONC 33.5 g/dl (32.0-36.5); MEAN CORPUSCULAR VOLUME 94.2 fl (80.0-96.0); MONO # 0.4 10^3/uL (0.0-0.8); MONO % 6.3 % (2.0-8.0); NEUTROPHILS # 2.7 10^3/uL (1.5-8.5); NEUTROPHILS % 42.1 % (36.0-66.0); PLATELET COUNT, AUTOMATED 151 10^3/uL (150-450); RED BLOOD COUNT 4.15 10^6/uL (4.30-6.10); WHITE BLOOD COUNT 6.5 10^3/uL (4.0-10.0)
[2022-03-13 13:30] LABS: HEMOGLOBIN A1c 5.9 %
[2022-03-13 13:36] LABS: BILIRUBIN,TOTAL 0.6 MG/DL (0.2-1.0); CALCIUM LEVEL 9.8 MG/DL (8.8-10.2); CREATININE FOR GFR 1.48 MG/DL (0.70-1.30); GLOMERULAR FILTRATION RATE 47.9 (>35); POTASSIUM SERUM 4.9 MEQ/L (3.5-5.1); THYROID STIMULATING HORMONE 6.28 uIU/ML (0.358-3.740); TOTAL PROTEIN 7.3 GM/DL (6.4-8.2)
== END ==
LOC: M LAB 12:12
PROVIDERS: ATTEND Physician Assistant Medical
DX: R73.01 Impaired fasting glucose (principal); D63.8 Anemia in other chronic diseases classified elsewhere; E78.2 Mixed hyperlipidemia

== ENCOUNTER → 2022-03-20 | Outpatient (REF) | payer MEDICARE, OTHER | LOC: M SFHCADAM 13:42 | PROVIDERS: ATTEND Physician Assistant Medical | DX: R73.01 Impaired fasting glucose (principal); D63.8 Anemia in other chronic diseases classified elsewhere; E78.2 Mixed hyperlipidemia; Z53.8 Procedure and treatment not carried out for other reasons ==

== ENCOUNTER 2022-05-30 22:44 | Inpatient (IN) | payer MEDICARE, OTHER ==
[~2022-05-30] VITALS: Ht 170.2 cm; Wt 68.1 kg
[2022-05-31] MEDS: OMEGA-3 1000MG CAPSULE PO SCH (09:00)
[2022-05-31 09:20] LABS: HEMATOCRIT 37.9 % (42.0-52.0); HEMOGLOBIN 12.6 g/dl (13.5-17.5); MEAN CORPUSCULAR HEMOGLOBIN 31.3 pg (27.0-33.0); MEAN CORPUSCULAR HGB CONC 33.2 g/dl (32.0-36.5); MEAN CORPUSCULAR VOLUME 94.3 fl (80.0-96.0); PLATELET COUNT, AUTOMATED 175 10^3/uL (150-450); RED BLOOD COUNT 4.02 10^6/uL (4.30-6.10); WHITE BLOOD COUNT 7.4 10^3/uL (4.0-10.0)
[2022-05-31 09:44] LABS: CALCIUM LEVEL 9.8 MG/DL (8.8-10.2); CREATININE FOR GFR 1.39 MG/DL (0.70-1.30); GLOMERULAR FILTRATION RATE 51.5 (>35); POTASSIUM SERUM 4.4 MEQ/L (3.5-5.1)
[2022-05-31 09:54] LABS: RSV AMPLIFICATION NEGATIVE (NEGATIVE)
[2022-05-31] MEDS ORDERED: dexameTHASONE 4 MG/ML 1ML VIAL (J1100 PER 1MG) IV ONE (09:55)
[2022-05-31] MEDS ORDERED: OMEG100011 PO (10:14)
[2022-05-31] MEDS ORDERED: SIMV10TA21 PO (10:14)
[2022-05-31] MEDS ORDERED: VITMTA PO (10:14)
[2022-05-31] MEDS ORDERED: HOME MED LIST COMPLETE! XX SCH (10:15)
[2022-05-31] MEDS ORDERED: traMADol 50 MG TAB PO PRN (10:55)
[2022-05-31] MEDS ORDERED: PILL CUTTER 1 EACH XX PRN (11:00)
[2022-05-31] MEDS: ASPIRIN 325 MG TAB PO SCH (11:00)
[2022-05-31] MEDS: MULTIVITAMINS/MINERALS THERAP 1 TAB PO SCH (11:01)
[2022-05-31] MEDS: SIMVASTATIN 10 MG TAB PO SCH (11:01)
[2022-05-31] MEDS: METOPROLOL TART 25 MG TABLET PO SCH ×2 (11:01→20:05)
[2022-05-31] MEDS: ACETAMINOPHEN 500 MG TAB PO SCH ×3 (11:05→20:02)
[2022-05-31] MEDS: LIDOCAINE 5% (LIDODERM) PATCH TD SCH (11:06)
[2022-05-31 15:45] VITALS: BP 144/76
[2022-05-31] MEDS ORDERED: ENOXAPARIN 40MG/0.4ML SYRINGE (J1650 PER 10MG) SC ONE (18:10)
[2022-05-31] MEDS: dexameTHASONE 4 MG/ML 1ML VIAL (J1100 PER 1MG) IV SCH (20:02)
[2022-05-31] MEDS: **NOTE PATIENT COMMENT** MISC XX SCH (20:05)
[2022-05-31 20:21] VITALS: BP 137/70
[2022-06-01 05:45] VITALS: BP 148/83
[2022-06-01 06:31] LABS: HEMATOCRIT 35.7 % (42.0-52.0); HEMOGLOBIN 12.2 g/dl (13.5-17.5); MEAN CORPUSCULAR HGB CONC 34.2 g/dl (32.0-36.5); MEAN CORPUSCULAR VOLUME 90.6 fl (80.0-96.0); PLATELET COUNT, AUTOMATED 177 10^3/uL (150-450); RED BLOOD COUNT 3.94 10^6/uL (4.30-6.10); WHITE BLOOD COUNT 6.4 10^3/uL (4.0-10.0)
[2022-06-01 06:46] LABS: CALCIUM LEVEL 9.1 MG/DL (8.8-10.2); CREATININE FOR GFR 1.54 MG/DL (0.70-1.30); GLOMERULAR FILTRATION RATE 45.7 (>35); POTASSIUM SERUM 4.7 MEQ/L (3.5-5.1)
[2022-06-01] MEDS: dexameTHASONE 4 MG/ML 1ML VIAL (J1100 PER 1MG) IV SCH ×2 (09:07→20:03)
[2022-06-01] MEDS: ENOXAPARIN 40MG/0.4ML SYRINGE (J1650 PER 10MG) SC SCH (09:07)
[2022-06-01] MEDS: ASPIRIN 325 MG TAB PO SCH (09:07)
[2022-06-01] MEDS: MULTIVITAMINS/MINERALS THERAP 1 TAB PO SCH (09:08)
[2022-06-01] MEDS: SIMVASTATIN 10 MG TAB PO SCH (09:08)
[2022-06-01] MEDS: METOPROLOL TART 25 MG TABLET PO SCH ×2 (09:08→20:03)
[2022-06-01] MEDS: ACETAMINOPHEN 500 MG TAB PO SCH ×3 (09:08→20:03)
[2022-06-01] MEDS: OMEGA-3 1000MG CAPSULE PO SCH (09:08)
[2022-06-01] MEDS: LIDOCAINE 5% (LIDODERM) PATCH TD SCH (09:10)
[2022-06-01 14:00] VITALS: BP 141/74
[2022-06-01] MEDS: **NOTE PATIENT COMMENT** MISC XX SCH (20:03)
[2022-06-01 23:32] VITALS: BP 138/74
[2022-06-02 06:00] VITALS: BP 135/62
[2022-06-02 06:51] LABS: HEMATOCRIT 35.9 % (42.0-52.0); HEMOGLOBIN 12.2 g/dl (13.5-17.5); MEAN CORPUSCULAR HEMOGLOBIN 30.8 pg (27.0-33.0); MEAN CORPUSCULAR VOLUME 90.7 fl (80.0-96.0); PLATELET COUNT, AUTOMATED 202 10^3/uL (150-450); RED BLOOD COUNT 3.96 10^6/uL (4.30-6.10); WHITE BLOOD COUNT 11.7 10^3/uL (4.0-10.0)
[2022-06-02 07:15] LABS: CALCIUM LEVEL 9.1 MG/DL (8.8-10.2); CREATININE FOR GFR 1.55 MG/DL (0.70-1.30); GLOMERULAR FILTRATION RATE 45.4 (>35); POTASSIUM SERUM 4.3 MEQ/L (3.5-5.1)
[2022-06-02] MEDS: ASPIRIN 325 MG TAB PO SCH (08:20)
[2022-06-02] MEDS: OMEGA-3 1000MG CAPSULE PO SCH (08:20)
[2022-06-02] MEDS: SIMVASTATIN 10 MG TAB PO SCH (08:20)
[2022-06-02 08:21] VITALS: BP 135/62
[2022-06-02] MEDS: METOPROLOL TART 25 MG TABLET PO SCH (08:21)
[2022-06-02] MEDS: ACETAMINOPHEN 500 MG TAB PO SCH (08:21)
[2022-06-02] MEDS: LIDOCAINE 5% (LIDODERM) PATCH TD SCH (08:21)
[2022-06-02] MEDS: MULTIVITAMINS/MINERALS THERAP 1 TAB PO SCH (08:21)
[2022-06-02] MEDS: ENOXAPARIN 40MG/0.4ML SYRINGE (J1650 PER 10MG) SC SCH (08:21)
[2022-06-02] MEDS: dexameTHASONE 4 MG/ML 1ML VIAL (J1100 PER 1MG) IV SCH (08:22)
[2022-06-02 14:00] VITALS: BP 160/67
[2022-06-02 14:45] VITALS: BP 148/66
== END 2022-06-02 16:33 | disposition home or self-care (01) | DRG 552 ==
LOC: M ED 22:44 → EDBD 22:44 → M ED INP 05-31 10:00 → ENRESERV 05-31 13:16 → M MSPAV 05-31 15:41
PROVIDERS: ADMIT General Practice; ATTEND Internal Medicine
DX: S32.030A Wedge compression fracture of third lumbar vertebra, initial encounter for closed fracture (principal); I47.1 Supraventricular tachycardia; Z66 Do not resuscitate; Z20.822 Contact with and (suspected) exposure to COVID-19; M48.00 Spinal stenosis, site unspecified; M51.26 Other intervertebral disc displacement, lumbar region; I12.9 Hypertensive chronic kidney disease with stage 1 through stage 4 chronic kidney disease, or unspecified chronic kidney disease; E78.5 Hyperlipidemia, unspecified; M47.816 Spondylosis without myelopathy or radiculopathy, lumbar region; R73.01 Impaired fasting glucose; E55.9 Vitamin D deficiency, unspecified; D63.1 Anemia in chronic kidney disease; N18.30 Chronic kidney disease, stage 3 unspecified; S32.040A Wedge compression fracture of fourth lumbar vertebra, initial encounter for closed fracture; X58.XXXA Exposure to other specified factors, initial encounter; Y92.9 Unspecified place or not applicable

== ENCOUNTER 2022-06-15 21:50 | Emergency (ER) | payer MEDICARE, OTHER ==
[~2022-06-15 21:50] MED LIST changes: +OMEG100011 PO; +SIMV10TA21 PO; +VITMTA PO
[2022-06-16 02:22] LABS: BASO % 0.4 % (0.0-1.0); EOS # 0.1 10^3/uL (0.0-0.5); HEMOGLOBIN 12.4 g/dl (13.5-17.5); LYMPH # 1.8 10^3/uL (1.5-5.0); LYMPH % 25.3 % (24.0-44.0); MEAN CORPUSCULAR HEMOGLOBIN 31.5 pg (27.0-33.0); MEAN CORPUSCULAR HGB CONC 34.4 g/dl (32.0-36.5); MEAN CORPUSCULAR VOLUME 91.4 fl (80.0-96.0); MONO # 0.3 10^3/uL (0.0-0.8); MONO % 4.9 % (2.0-8.0); NEUTROPHILS # 4.8 10^3/uL (1.5-8.5); NEUTROPHILS % 68.1 % (36.0-66.0); PLATELET COUNT, AUTOMATED 140 10^3/uL (150-450); RED BLOOD COUNT 3.94 10^6/uL (4.30-6.10)
[2022-06-16 02:33] LABS: INR 1.05; PROTHROMBIN TIME 14.1 SECONDS (12.7-14.5)
[2022-06-16 02:57] LABS: MB/CK RELATIVE INDEX 5.15 (< OR =4)
[2022-06-16 03:02] LABS: CALCIUM LEVEL 9.3 MG/DL (8.8-10.2); CREATININE FOR GFR 1.46 MG/DL (0.70-1.30); GLOMERULAR FILTRATION RATE 48.6 (>35); MAGNESIUM LEVEL 2.3 MG/DL (1.8-2.4); POTASSIUM SERUM 4.4 MEQ/L (3.5-5.1); THYROID STIMULATING HORMONE 3.19 uIU/ML (0.358-3.740)
[2022-06-16] MEDS ORDERED: NS 500 ML IV ONE (06:30)
[2022-06-16] MEDS ORDERED: METOPROLOL TART 25 MG TABLET PO ONE (06:35)
[2022-06-16 06:38] VITALS: BP 174/80
[2022-06-16 10:37] VITALS: BP 142/65
== END 2022-06-16 11:17 | disposition home or self-care (01) ==
LOC: EDSEX 21:50 → M ED 21:50 → EDBD 21:50 → M ED 06-16 11:17
DX: E86.0 Dehydration (principal); I10 Essential (primary) hypertension; N18.30 Chronic kidney disease, stage 3 unspecified; E55.9 Vitamin D deficiency, unspecified; E78.5 Hyperlipidemia, unspecified; M48.00 Spinal stenosis, site unspecified; Z79.899 Other long term (current) drug therapy; Z79.82 Long term (current) use of aspirin

== ENCOUNTER → 2022-09-21 | Outpatient (REF) | payer MEDICARE, OTHER ==
[2022-09-21 19:16] LABS: BASO % 0.5 % (0.0-1.0); EOS # 0.2 10^3/uL (0.0-0.5); EOS % 2.4 % (0.0-3.0); HEMOGLOBIN 11.7 g/dl (13.5-17.5); LYMPH # 3.3 10^3/uL (1.5-5.0); LYMPH % 37.1 % (24.0-44.0); MEAN CORPUSCULAR HEMOGLOBIN 31.5 pg (27.0-33.0); MEAN CORPUSCULAR HGB CONC 32.5 g/dl (32.0-36.5); MONO # 0.5 10^3/uL (0.0-0.8); MONO % 6.1 % (2.0-8.0); NEUTROPHILS # 4.7 10^3/uL (1.5-8.5); NEUTROPHILS % 53.6 % (36.0-66.0); PLATELET COUNT, AUTOMATED 186 10^3/uL (150-450); RED BLOOD COUNT 3.71 10^6/uL (4.30-6.10); WHITE BLOOD COUNT 8.8 10^3/uL (4.0-10.0)
[2022-09-21 20:42] LABS: ALBUMIN 4.1 GM/DL (3.2-5.2); BILIRUBIN,TOTAL 0.5 MG/DL (0.2-1.0); CALCIUM LEVEL 9.5 MG/DL (8.8-10.2); CREATININE FOR GFR 1.56 MG/DL (0.70-1.30); POTASSIUM SERUM 5.5 MEQ/L (3.5-5.1)
[2022-09-21 20:59] LABS: HEMOGLOBIN A1c 5.9 %
== END ==
LOC: M SFHCADAM 14:04
PROVIDERS: ATTEND Physician Assistant Medical
DX: R73.01 Impaired fasting glucose (principal); D63.8 Anemia in other chronic diseases classified elsewhere; E03.9 Hypothyroidism, unspecified

== ENCOUNTER → 2023-03-12 | Outpatient (REF) | payer MEDICARE, OTHER ==
[2023-03-12 16:59] LABS: ALBUMIN 4.3 G/DL (3.2-5.2); BILIRUBIN,TOTAL 0.5 MG/DL (0.3-1.2); CALCIUM LEVEL 9.5 MG/DL (8.3-10.6); CHOLESTEROL RISK RATIO 4.9 (<5); CREATININE FOR GFR 1.58 MG/DL (0.70-1.30); GLOMERULAR FILTRATION RATE 44.3 (>35); HDL CHOLESTEROL 35.9 MG/DL (>40); LDL CHOLESTEROL 99.5 MG/DL (<100); NON-HDL-C 140.1 MG/DL; POTASSIUM SERUM 5.6 MMOL/L (3.5-5.1); TOTAL PROTEIN 7.2 G/DL (5.7-8.2)
[2023-03-12 17:01] LABS: TOTAL 25(OH) VITAMIN D 49.2 NG/ML (20.0-100.0)
[2023-03-12 17:02] LABS: FREE T4 0.74 NG/DL (0.89-1.76)
[2023-03-12 17:05] LABS: BASO % 0.5 % (0.0-1.0); EOS # 0.2 10^3/uL (0.0-0.5); HEMATOCRIT 36.4 % (42.0-52.0); HEMOGLOBIN 11.6 g/dl (13.5-17.5); LYMPH # 2.4 10^3/uL (1.5-5.0); LYMPH % 31.3 % (24.0-44.0); MEAN CORPUSCULAR HEMOGLOBIN 31.4 pg (27.0-33.0); MEAN CORPUSCULAR HGB CONC 31.9 g/dl (32.0-36.5); MEAN CORPUSCULAR VOLUME 98.6 fl (80.0-96.0); MONO # 0.7 10^3/uL (0.0-0.8); MONO % 8.6 % (2.0-8.0); NEUTROPHILS # 4.3 10^3/uL (1.5-8.5); NEUTROPHILS % 56.1 % (36.0-66.0); PLATELET COUNT, AUTOMATED 125 10^3/uL (150-450); RED BLOOD COUNT 3.69 10^6/uL (4.30-6.10); WHITE BLOOD COUNT 7.6 10^3/uL (4.0-10.0)
[2023-03-12 17:23] LABS: THYROID STIMULATING HORMONE 6.287 uIU/ML (0.55-4.78)
[2023-03-12 18:04] LABS: HEMOGLOBIN A1c 5.5 % (4.0-6.0)
== END ==
LOC: M SFHCADAM 13:59
PROVIDERS: ATTEND Physician Assistant Medical
DX: R73.01 Impaired fasting glucose (principal); I10 Essential (primary) hypertension; D63.8 Anemia in other chronic diseases classified elsewhere; E78.2 Mixed hyperlipidemia; E03.9 Hypothyroidism, unspecified; Z79.899 Other long term (current) drug therapy
CPT/HCPCS: 80053; 80061; 82306; 83036; 84439; 84443; 85025; G0463

== ENCOUNTER → 2023-03-13 | Outpatient (REF) | payer MEDICARE, OTHER ==
[2023-03-16 10:32] LABS: CREATININE, URINE 107.5 MG/DL; MAU/CREAT RATIO 13.9 MCG/MG (0.0-30.0)
== END ==
LOC: M SFHCADAM 10:17
PROVIDERS: ATTEND Physician Assistant Medical
DX: I10 Essential (primary) hypertension (principal); R73.01 Impaired fasting glucose; D63.8 Anemia in other chronic diseases classified elsewhere; E78.2 Mixed hyperlipidemia; E03.9 Hypothyroidism, unspecified

== ENCOUNTER 2023-10-09 00:56 | Emergency (ER) | payer MEDICARE, OTHER ==
[~2023-10-09] VITALS: Ht 175.3 cm; Wt 62.4 kg
[2023-10-09 03:56] VITALS: BP 154/75; TEMP 97.2; O2SAT 97
== END 2023-10-09 04:18 | disposition short-term general hospital (02) ==
LOC: EDBD 00:56 → M ED 00:56
DX: S06.5X0A Traumatic subdural hemorrhage without loss of consciousness, initial encounter (principal); W10.9XXA Fall (on) (from) unspecified stairs and steps, initial encounter; Y92.009 Unspecified place in unspecified non-institutional (private) residence as the place of occurrence of the external cause; Y93.01 Activity, walking, marching and hiking; Y99.8 Other external cause status; I11.9 Hypertensive heart disease without heart failure; N18.30 Chronic kidney disease, stage 3 unspecified; E55.9 Vitamin D deficiency, unspecified; Z79.899 Other long term (current) drug therapy; Z79.82 Long term (current) use of aspirin